=== PATIENT | female | born 1945 | race Caucasian/White ===

== ENCOUNTER 2021-03-27 11:42 | Day surgery (SDC) | payer MEDICARE, MEDICAID ==
[~2021-03-27] VITALS: Ht 165.1 cm; Wt 112.8 kg
[~2021-03-27 11:42] MED LIST: ALB0.5UD IH; ARIP10TA15 PO; ATOR20TA PO; BACL20TA PO; BUDE10.23 IH; ESCI20TA29 PO; ESOM40CA PO; ESTR1TAB19 PO; FURO-150 PO; HYDR-4353 PO; LAMO100T2 PO; LEVO25TA7 PO; LYR75C PO; METF500T PO; METH5TAB4 PO; MULT-785 PO; NITR0.4T51 SL; PRED20TA PO; ZOLP10TA5 PO
[2021-03-27 13:15] VITALS: BP 124/51
== END 2021-03-27 14:21 | disposition home or self-care (01) ==
LOC: SSTAY O 11:42 → MERGE 13:30 → SSTAY O 14:21
PROVIDERS: ATTEND Radiology Diagnostic Radiology
DX: R59.0 Localized enlarged lymph nodes (principal); Z53.8 Procedure and treatment not carried out for other reasons; D47.2 Monoclonal gammopathy; D64.9 Anemia, unspecified; E11.9 Type 2 diabetes mellitus without complications; M19.90 Unspecified osteoarthritis, unspecified site; F17.290 Nicotine dependence, other tobacco product, uncomplicated; Z88.5 Allergy status to narcotic agent; Z79.899 Other long term (current) drug therapy; Z79.84 Long term (current) use of oral hypoglycemic drugs
CPT/HCPCS: 38505; 76536; 76942